=== PATIENT | female | born 1965 | race African-American/Black ===

== ENCOUNTER 2020-09-03 13:24 | Inpatient (IN) | payer OTHER ==
[2020-09-03 15:01] VITALS: BMI 24.3
[2020-09-03] MEDS ORDERED: ACETAMINOPHEN 325 MG TABLET (FP) PO PRN ×2 (17:01)
[2020-09-03] MEDS ORDERED: MAG HYDROX/AL HYDROX/SIMETH 30 ML UNIT-DOSE CUP PO PRN (17:01)
[2020-09-03] MEDS ORDERED: MAGNESIUM HYDROX 2400MG/30ML ORAL SUSPENSION 30 ML CUP PO PRN (17:01)
[2020-09-03] MEDS ORDERED: ONDANSETRON *ODT* 4 MG TABLET SL PRN (17:01)
[2020-09-03] MEDS ORDERED: chlordiazePOXIDE HCL 25 MG CAPSULE PO PRN (17:01)
[2020-09-03] MEDS ORDERED: MENTHOL/PHENOL 1 EACH UD MM PRN (17:01)
[2020-09-03] MEDS ORDERED: NICOTINE POLACRILEX 2 MG GUM BUC PRN (17:01)
[2020-09-03] MEDS ORDERED: BISMUTH SUBSALICYLATE 524 MG/30 ML UD PO PRN (17:01)
[2020-09-03] MEDS ORDERED: MAGNESIUM CITRATE 300 ML BOTTLE PO PRN (17:01)
[2020-09-03] MEDS: chlordiazePOXIDE HCL 25 MG CAPSULE PO SCH ×2 (18:05→22:34)
[2020-09-03] MEDS: THIAMINE HCL 100 MG TABLET (FP) PO SCH (22:33)
[2020-09-03] MEDS: MELATONIN 5 MG TABLETS PO SCH (22:33)
[2020-09-03] MEDS: SULFAMETHOXAZOLE/TRIMETHOPRIM 800MG/160MG D.S. TABLET PO SCH (22:35)
[2020-09-03] MEDS: cloNIDine HCL 0.1 MG TABLET PO SCH (22:35)
[2020-09-04] MEDS: cloNIDine HCL 0.1 MG TABLET PO SCH ×3 (05:33→22:28)
[2020-09-04] MEDS: chlordiazePOXIDE HCL 25 MG CAPSULE PO SCH ×4 (05:33→22:28)
[2020-09-04] MEDS ORDERED: METHADONE HCL 10 MG TABLET PO SCH (08:45)
[2020-09-04] MEDS ORDERED: METHADONE HCL 40 MG DISPERSABLE TABLET ONE (10:03)
[2020-09-04] MEDS ORDERED: METHADONE HCL 10 MG TABLET ONE (10:03)
[2020-09-04] MEDS: SULFAMETHOXAZOLE/TRIMETHOPRIM 800MG/160MG D.S. TABLET PO SCH ×2 (10:05→22:28)
[2020-09-04] MEDS: PRENATAL VITAMINS W/ FOLIC ACID TABLET (FP) PO SCH (10:06)
[2020-09-04] MEDS: LISINOPRIL 10 MG TABLET PO SCH (10:06)
[2020-09-04] MEDS: METHADONE 200 MG, METHADONE 10 MG PO SCH (10:09)
[2020-09-04] MEDS: NICOTINE 21 MG/24 HOURS TOPICAL PATCH TD SCH (10:14)
[2020-09-04 12:26] LABS: HEMATOCRIT 36.4 % (32.4-45.2); MCH 29.5 pg (25.7-33.7); MCHC 33.1 g/dl (32.0-36.0); MEAN CELL VOLUME 89.2 fl (80-96); MEAN PLT VOLUME 10.2 fl (7.5-11.1); PLATELET COUNT 261 K/MM3 (134-434); RBC 4.08 M/mm3 (3.60-5.2); RDW 15.2 % (11.6-15.6); WHITE BLOOD COUNT 6.1 K/mm3 (4.0-10.0)
[2020-09-04 12:31] LABS: POTASSIUM 4.2 mmol/L (3.5-5.1)
[2020-09-04 12:36] LABS: ALBUMIN 4.1 g/dl (3.4-5.0); BLOOD UREA NITROGEN 20.6 mg/dL (7-18); CALCIUM 9.2 mg/dL (8.5-10.1)
[2020-09-04 12:40] LABS: BILIRUBIN,TOTAL 0.7 mg/dL (0.2-1)
[2020-09-04 12:41] LABS: TOT PROT 8.3 g/dl (6.4-8.2)
[2020-09-04] MEDS ORDERED: MASKS NR ONE (22:27)
[2020-09-04] MEDS: MELATONIN 5 MG TABLETS PO SCH (22:28)
[2020-09-04] MEDS: THIAMINE HCL 100 MG TABLET (FP) PO SCH (22:28)
[2020-09-05] MEDS ORDERED: METHADONE HCL 10 MG TABLET ONE (04:01)
[2020-09-05] MEDS ORDERED: METHADONE HCL 40 MG DISPERSABLE TABLET ONE (04:02)
[2020-09-05] MEDS: chlordiazePOXIDE HCL 25 MG CAPSULE PO SCH ×4 (06:00→22:35)
[2020-09-05] MEDS: cloNIDine HCL 0.1 MG TABLET PO SCH ×3 (06:00→22:35)
[2020-09-05] MEDS: METHADONE 200 MG, METHADONE 10 MG PO SCH (06:01)
[2020-09-05] MEDS: LISINOPRIL 10 MG TABLET PO SCH (10:35)
[2020-09-05] MEDS: SULFAMETHOXAZOLE/TRIMETHOPRIM 800MG/160MG D.S. TABLET PO SCH ×2 (10:35→22:35)
[2020-09-05] MEDS: PRENATAL VITAMINS W/ FOLIC ACID TABLET (FP) PO SCH (10:36)
[2020-09-05] MEDS: NICOTINE 21 MG/24 HOURS TOPICAL PATCH TD SCH (10:36)
[2020-09-05] MEDS: IBUPROFEN 400 MG TABLET (FP) PO PRN (11:40)
[2020-09-05] MEDS: METHOCARBAMOL 500 MG TABLET PO PRN (11:40)
[2020-09-05 16:34] LABS: POTASSIUM 4.7 mmol/L (3.5-5.1)
[2020-09-05 16:36] LABS: CALCIUM 9.4 mg/dL (8.5-10.1)
[2020-09-05 16:37] LABS: ALBUMIN 3.6 g/dl (3.4-5.0); BLOOD UREA NITROGEN 26.6 mg/dL (7-18)
[2020-09-05 16:41] LABS: BILIRUBIN,TOTAL 0.2 mg/dL (0.2-1); TOT PROT 7.4 g/dl (6.4-8.2)
[2020-09-05] MEDS: AMMONIUM LACTATE 12% LOTION 225 GM BOTTLE TP PRN (19:43)
[2020-09-05] MEDS: MELATONIN 5 MG TABLETS PO SCH (22:35)
[2020-09-05] MEDS: THIAMINE HCL 100 MG TABLET (FP) PO SCH (22:35)
[2020-09-06] MEDS ORDERED: chlordiazePOXIDE HCL 10 MG CAPSULE PO PRN
[2020-09-06] MEDS ORDERED: METHADONE HCL 10 MG TABLET ONE (04:45)
[2020-09-06] MEDS ORDERED: METHADONE HCL 40 MG DISPERSABLE TABLET ONE (04:46)
[2020-09-06] MEDS: METHADONE 200 MG, METHADONE 10 MG PO SCH (06:32)
[2020-09-06] MEDS: chlordiazePOXIDE HCL 10 MG CAPSULE PO SCH ×4 (06:33→22:30)
[2020-09-06] MEDS: cloNIDine HCL 0.1 MG TABLET PO SCH ×3 (06:33→22:31)
[2020-09-06] MEDS: IBUPROFEN 400 MG TABLET (FP) PO PRN (07:17)
[2020-09-06] MEDS: METHOCARBAMOL 500 MG TABLET PO PRN ×2 (07:18→17:54)
[2020-09-06] MEDS: LISINOPRIL 10 MG TABLET PO SCH (10:44)
[2020-09-06] MEDS: NICOTINE 21 MG/24 HOURS TOPICAL PATCH TD SCH (10:44)
[2020-09-06] MEDS: LACTULOSE 20 GM/30 ML UDC (FOR ORAL USE ONLY) PO SCH ×3 (10:44→22:33)
[2020-09-06] MEDS: PRENATAL VITAMINS W/ FOLIC ACID TABLET (FP) PO SCH (10:44)
[2020-09-06] MEDS: SULFAMETHOXAZOLE/TRIMETHOPRIM 800MG/160MG D.S. TABLET PO SCH ×2 (10:44→22:32)
[2020-09-06] MEDS: THIAMINE HCL 100 MG TABLET (FP) PO SCH (22:31)
[2020-09-06] MEDS: MELATONIN 5 MG TABLETS PO SCH (22:31)
[2020-09-07] MEDS ORDERED: METHADONE HCL 10 MG TABLET ONE (05:06)
[2020-09-07] MEDS ORDERED: METHADONE HCL 40 MG DISPERSABLE TABLET ONE (05:06)
[2020-09-07] MEDS: METHADONE 200 MG, METHADONE 10 MG PO SCH (05:22)
[2020-09-07] MEDS: chlordiazePOXIDE HCL 10 MG CAPSULE PO SCH ×2 (05:23→18:12)
[2020-09-07] MEDS: cloNIDine HCL 0.1 MG TABLET PO SCH ×3 (05:24→22:33)
[2020-09-07] MEDS: LACTULOSE 20 GM/30 ML UDC (FOR ORAL USE ONLY) PO SCH ×3 (05:25→22:33)
[2020-09-07] MEDS: IBUPROFEN 400 MG TABLET (FP) PO PRN (05:31)
[2020-09-07] MEDS: LISINOPRIL 10 MG TABLET PO SCH (10:11)
[2020-09-07] MEDS: SULFAMETHOXAZOLE/TRIMETHOPRIM 800MG/160MG D.S. TABLET PO SCH ×2 (10:11→22:34)
[2020-09-07] MEDS: PRENATAL VITAMINS W/ FOLIC ACID TABLET (FP) PO SCH (10:11)
[2020-09-07] MEDS: NICOTINE 21 MG/24 HOURS TOPICAL PATCH TD SCH (10:11)
[2020-09-07] MEDS: AMMONIUM LACTATE 12% LOTION 225 GM BOTTLE TP PRN (10:13)
[2020-09-07] MEDS: SIMETHICONE 80 MG TAB.CHEW (FP) PO SCH ×2 (18:13→22:34)
[2020-09-07] MEDS: THIAMINE HCL 100 MG TABLET (FP) PO SCH (22:33)
[2020-09-07] MEDS: MELATONIN 5 MG TABLETS PO SCH (22:33)
[2020-09-08] MEDS ORDERED: METHADONE HCL 10 MG TABLET ONE (03:48)
[2020-09-08] MEDS ORDERED: METHADONE HCL 40 MG DISPERSABLE TABLET ONE (03:49)
[2020-09-08] MEDS ORDERED: chlordiazePOXIDE HCL 10 MG CAPSULE PO ONE (05:00)
[2020-09-08] MEDS: METHADONE 200 MG, METHADONE 10 MG PO SCH (06:24)
[2020-09-08] MEDS: cloNIDine HCL 0.1 MG TABLET PO SCH (06:35)
[2020-09-08] MEDS: LACTULOSE 20 GM/30 ML UDC (FOR ORAL USE ONLY) PO SCH (06:36)
[2020-09-08 09:48] VITALS: BP 111/65; PULSE 66; TEMP 96.9
[2020-09-08] MEDS ORDERED: LACTULOSE 20 GM/30 ML UDC (FOR ORAL USE ONLY) PO SCH (10:00)
[2020-09-08] MEDS: LISINOPRIL 10 MG TABLET PO SCH (10:34)
[2020-09-08] MEDS: PRENATAL VITAMINS W/ FOLIC ACID TABLET (FP) PO SCH (10:34)
[2020-09-08] MEDS: SULFAMETHOXAZOLE/TRIMETHOPRIM 800MG/160MG D.S. TABLET PO SCH (10:34)
[2020-09-08] MEDS: NICOTINE 21 MG/24 HOURS TOPICAL PATCH TD SCH (10:34)
[2020-09-08] MEDS: SIMETHICONE 80 MG TAB.CHEW (FP) PO SCH (10:34)
== END 2020-09-08 11:59 | disposition other institution (70) | DRG 774 ==
LOC: YASAS 13:24 → Y6N 16:16
PROVIDERS: ADMIT Allergy & Immunology; ATTEND Allergy & Immunology
PROC: HZ2ZZZZ Detoxification Services for Substance Abuse Treatment (ICD-10-PCS; principal; 2020-09-03)
DX: F10.230 Alcohol dependence with withdrawal, uncomplicated (principal); F14.20 Cocaine dependence, uncomplicated; F12.20 Cannabis dependence, uncomplicated; F17.210 Nicotine dependence, cigarettes, uncomplicated; F19.24 Other psychoactive substance dependence with psychoactive substance-induced mood disorder; F41.9 Anxiety disorder, unspecified; F32.9 Major depressive disorder, single episode, unspecified; F43.10 Post-traumatic stress disorder, unspecified; Z21 Asymptomatic human immunodeficiency virus [HIV] infection status; E72.20 Disorder of urea cycle metabolism, unspecified; I10 Essential (primary) hypertension; R56.9 Unspecified convulsions; R79.89 Other specified abnormal findings of blood chemistry; Z87.440 Personal history of urinary (tract) infections; Z88.0 Allergy status to penicillin; Z56.0 Unemployment, unspecified; Z59.0 Homelessness
CPT/HCPCS: 36415; 80053; 81025; 82140; 84520; 85027; 86780; C9803; J0735; U0003

== ENCOUNTER 2020-09-08 12:35 | Inpatient (IN) | payer OTHER ==
[2020-09-08] MEDS ORDERED: MAGNESIUM HYDROX 2400MG/30ML ORAL SUSPENSION 30 ML CUP PO PRN (15:25)
[2020-09-08] MEDS ORDERED: MENTHOL/PHENOL 1 EACH UD MM PRN (15:25)
[2020-09-08] MEDS ORDERED: MAGNESIUM CITRATE 300 ML BOTTLE PO PRN (15:25)
[2020-09-08] MEDS ORDERED: MAG HYDROX/AL HYDROX/SIMETH 30 ML UNIT-DOSE CUP PO PRN (15:25)
[2020-09-08] MEDS ORDERED: LOPERAMIDE HCL 2 MG CAPSULE PO PRN (15:25)
[2020-09-08] MEDS ORDERED: P-EPHED 60MG/TRIPROLIDI 2.5MG TABLET PO PRN (15:25)
[2020-09-08] MEDS ORDERED: guaiFENesin 200 MG/10 ML 10 ML UNIT-DOSE CUPS PO PRN (15:25)
[2020-09-08] MEDS ORDERED: NICOTINE POLACRILEX 2 MG GUM BUC PRN (15:25)
[2020-09-08] MEDS ORDERED: ACETAMINOPHEN 325 MG TABLET (FP) PO PRN (15:25)
[2020-09-08] MEDS: LACTULOSE 20 GM/30 ML UDC (FOR ORAL USE ONLY) PO SCH ×2 (17:17→21:27)
[2020-09-08] MEDS: IBUPROFEN 400 MG TABLET (FP) PO PRN (18:21)
[2020-09-08] MEDS: SULFAMETHOXAZOLE/TRIMETHOPRIM 800MG/160MG D.S. TABLET PO SCH (21:27)
[2020-09-08] MEDS: THIAMINE HCL 100 MG TABLET (FP) PO SCH (21:27)
[2020-09-08] MEDS: MELATONIN 5 MG TABLETS PO SCH (21:27)
[2020-09-09] MEDS ORDERED: METHADONE HCL 10 MG TABLET PO SCH (06:00)
[2020-09-09] MEDS ORDERED: METHADONE HCL 40 MG DISPERSABLE TABLET ONE (07:24)
[2020-09-09] MEDS ORDERED: METHADONE HCL 10 MG TABLET ONE (07:24)
[2020-09-09] MEDS: METHADONE 200 MG, METHADONE 10 MG PO SCH (07:25)
[2020-09-09] MEDS: LISINOPRIL 10 MG TABLET PO SCH (10:23)
[2020-09-09] MEDS: hydrOXYzine PAMOATE 25 MG CAPSULE (FP) PO PRN ×2 (10:34→14:10)
[2020-09-09] MEDS: LACTULOSE 20 GM/30 ML UDC (FOR ORAL USE ONLY) PO SCH ×4 (10:34→21:06)
[2020-09-09] MEDS: PRENATAL VITAMINS W/ FOLIC ACID TABLET (FP) PO SCH (10:34)
[2020-09-09] MEDS: NICOTINE 7 MG/24 HOURS TOPICAL PATCH TD SCH (10:34)
[2020-09-09] MEDS: SULFAMETHOXAZOLE/TRIMETHOPRIM 800MG/160MG D.S. TABLET PO SCH ×2 (10:34→21:06)
[2020-09-09] MEDS: IBUPROFEN 400 MG TABLET (FP) PO PRN (10:35)
[2020-09-09] MEDS: LIDOCAINE 5% TOPICAL PATCH TP SCH (14:09)
[2020-09-09] MEDS ORDERED: PT OWN MED DRAWER 7, Y5N ONE (15:26)
[2020-09-09] MEDS: THIAMINE HCL 100 MG TABLET (FP) PO SCH (21:06)
[2020-09-09] MEDS: MELATONIN 5 MG TABLETS PO SCH (21:06)
[2020-09-09] MEDS: LIDOCAINE PATCH REMOVAL MC SCH (21:07)
[2020-09-09] MEDS: BACITRACIN 0.9 GM PACKET TP SCH (21:07)
[2020-09-09] MEDS: cloNIDine HCL 0.1 MG TABLET PO SCH (21:07)
[2020-09-10] MEDS ORDERED: METHADONE HCL 10 MG TABLET ONE (03:18)
[2020-09-10] MEDS ORDERED: METHADONE HCL 40 MG DISPERSABLE TABLET ONE (03:18)
[2020-09-10] MEDS: METHADONE 200 MG, METHADONE 10 MG PO SCH (06:23)
[2020-09-10] MEDS: cloNIDine HCL 0.1 MG TABLET PO SCH ×3 (06:24→21:31)
[2020-09-10] MEDS: PRENATAL VITAMINS W/ FOLIC ACID TABLET (FP) PO SCH (10:47)
[2020-09-10] MEDS: SULFAMETHOXAZOLE/TRIMETHOPRIM 800MG/160MG D.S. TABLET PO SCH ×2 (10:47→21:31)
[2020-09-10] MEDS: LIDOCAINE 5% TOPICAL PATCH TP SCH (10:47)
[2020-09-10] MEDS: LISINOPRIL 10 MG TABLET PO SCH (10:48)
[2020-09-10] MEDS: hydrOXYzine PAMOATE 25 MG CAPSULE (FP) PO PRN (10:48)
[2020-09-10] MEDS: LACTULOSE 20 GM/30 ML UDC (FOR ORAL USE ONLY) PO SCH ×4 (10:48→21:31)
[2020-09-10] MEDS: NICOTINE 7 MG/24 HOURS TOPICAL PATCH TD SCH (10:48)
[2020-09-10] MEDS: BACITRACIN 0.9 GM PACKET TP SCH ×2 (10:48→21:31)
[2020-09-10] MEDS: MELATONIN 5 MG TABLETS PO SCH (21:31)
[2020-09-10] MEDS: THIAMINE HCL 100 MG TABLET (FP) PO SCH (21:31)
[2020-09-10] MEDS: LIDOCAINE PATCH REMOVAL MC SCH (21:32)
[2020-09-11] MEDS ORDERED: METHADONE HCL 40 MG DISPERSABLE TABLET ONE (03:39)
[2020-09-11] MEDS ORDERED: METHADONE HCL 10 MG TABLET ONE (03:39)
[2020-09-11] MEDS: cloNIDine HCL 0.1 MG TABLET PO SCH ×3 (06:15→21:24)
[2020-09-11] MEDS: METHADONE 200 MG, METHADONE 10 MG PO SCH (06:15)
[2020-09-11] MEDS: hydrOXYzine PAMOATE 25 MG CAPSULE (FP) PO PRN ×2 (10:38→14:08)
[2020-09-11] MEDS: BACITRACIN 0.9 GM PACKET TP SCH ×2 (10:38→21:25)
[2020-09-11] MEDS: SULFAMETHOXAZOLE/TRIMETHOPRIM 800MG/160MG D.S. TABLET PO SCH ×2 (10:38→21:25)
[2020-09-11] MEDS: LACTULOSE 20 GM/30 ML UDC (FOR ORAL USE ONLY) PO SCH ×4 (10:38→21:24)
[2020-09-11] MEDS: LISINOPRIL 10 MG TABLET PO SCH (10:38)
[2020-09-11] MEDS: PRENATAL VITAMINS W/ FOLIC ACID TABLET (FP) PO SCH (10:38)
[2020-09-11] MEDS: LIDOCAINE 5% TOPICAL PATCH TP SCH (10:39)
[2020-09-11] MEDS: NICOTINE 7 MG/24 HOURS TOPICAL PATCH TD SCH (10:39)
[2020-09-11] MEDS: THIAMINE HCL 100 MG TABLET (FP) PO SCH (21:23)
[2020-09-11] MEDS: MELATONIN 5 MG TABLETS PO SCH (21:23)
[2020-09-11] MEDS: LIDOCAINE PATCH REMOVAL MC SCH (21:26)
[2020-09-12] MEDS ORDERED: METHADONE HCL 40 MG DISPERSABLE TABLET ONE (03:16)
[2020-09-12] MEDS ORDERED: METHADONE HCL 10 MG TABLET ONE (03:16)
[2020-09-12] MEDS: cloNIDine HCL 0.1 MG TABLET PO SCH ×3 (06:32→21:21)
[2020-09-12] MEDS: METHADONE 200 MG, METHADONE 10 MG PO SCH (06:34)
[2020-09-12] MEDS: SULFAMETHOXAZOLE/TRIMETHOPRIM 800MG/160MG D.S. TABLET PO SCH ×2 (10:27→21:21)
[2020-09-12] MEDS: PRENATAL VITAMINS W/ FOLIC ACID TABLET (FP) PO SCH (10:27)
[2020-09-12] MEDS: hydrOXYzine PAMOATE 25 MG CAPSULE (FP) PO PRN ×2 (10:27→14:08)
[2020-09-12] MEDS: LIDOCAINE 5% TOPICAL PATCH TP SCH (10:27)
[2020-09-12] MEDS: LISINOPRIL 10 MG TABLET PO SCH (10:27)
[2020-09-12] MEDS: BACITRACIN 0.9 GM PACKET TP SCH ×2 (10:28→21:21)
[2020-09-12] MEDS: LACTULOSE 20 GM/30 ML UDC (FOR ORAL USE ONLY) PO SCH ×4 (10:28→21:21)
[2020-09-12] MEDS: NICOTINE 7 MG/24 HOURS TOPICAL PATCH TD SCH (10:31)
[2020-09-12] MEDS: THIAMINE HCL 100 MG TABLET (FP) PO SCH (21:21)
[2020-09-12] MEDS: MELATONIN 5 MG TABLETS PO SCH (21:21)
[2020-09-12] MEDS: LIDOCAINE PATCH REMOVAL MC SCH (21:22)
[2020-09-13] MEDS ORDERED: METHADONE HCL 10 MG TABLET ONE (03:13)
[2020-09-13] MEDS ORDERED: METHADONE HCL 40 MG DISPERSABLE TABLET ONE (03:13)
[2020-09-13] MEDS: METHADONE 200 MG, METHADONE 10 MG PO SCH (06:19)
[2020-09-13] MEDS: cloNIDine HCL 0.1 MG TABLET PO SCH ×3 (06:19→21:11)
[2020-09-13] MEDS: PRENATAL VITAMINS W/ FOLIC ACID TABLET (FP) PO SCH (10:42)
[2020-09-13] MEDS: BACITRACIN 0.9 GM PACKET TP SCH ×2 (10:42→21:11)
[2020-09-13] MEDS: LACTULOSE 20 GM/30 ML UDC (FOR ORAL USE ONLY) PO SCH ×4 (10:43→21:11)
[2020-09-13] MEDS: LIDOCAINE 5% TOPICAL PATCH TP SCH (10:43)
[2020-09-13] MEDS: LISINOPRIL 10 MG TABLET PO SCH (10:45)
[2020-09-13] MEDS: NICOTINE 7 MG/24 HOURS TOPICAL PATCH TD SCH (10:45)
[2020-09-13] MEDS: THIAMINE HCL 100 MG TABLET (FP) PO SCH (21:11)
[2020-09-13] MEDS: LIDOCAINE PATCH REMOVAL MC SCH (21:12)
[2020-09-13] MEDS: MELATONIN 5 MG TABLETS PO SCH (21:12)
[2020-09-14] MEDS ORDERED: METHADONE HCL 10 MG TABLET ONE (03:20)
[2020-09-14] MEDS ORDERED: METHADONE HCL 40 MG DISPERSABLE TABLET ONE (03:20)
[2020-09-14] MEDS: cloNIDine HCL 0.1 MG TABLET PO SCH ×3 (06:16→21:20)
[2020-09-14] MEDS: METHADONE 200 MG, METHADONE 10 MG PO SCH (06:16)
[2020-09-14] MEDS: LIDOCAINE 5% TOPICAL PATCH TP SCH (10:28)
[2020-09-14] MEDS: BACITRACIN 0.9 GM PACKET TP SCH ×2 (10:28→21:20)
[2020-09-14] MEDS: LACTULOSE 20 GM/30 ML UDC (FOR ORAL USE ONLY) PO SCH ×4 (10:28→21:20)
[2020-09-14] MEDS: PRENATAL VITAMINS W/ FOLIC ACID TABLET (FP) PO SCH (10:29)
[2020-09-14] MEDS: NICOTINE 7 MG/24 HOURS TOPICAL PATCH TD SCH (10:29)
[2020-09-14] MEDS: LISINOPRIL 10 MG TABLET PO SCH (10:29)
[2020-09-14 20:41] VITALS: TEMP 97.5
[2020-09-14] MEDS: THIAMINE HCL 100 MG TABLET (FP) PO SCH (21:20)
[2020-09-14] MEDS: MELATONIN 5 MG TABLETS PO SCH (21:20)
[2020-09-14] MEDS: LIDOCAINE PATCH REMOVAL MC SCH (21:21)
[2020-09-15] MEDS ORDERED: METHADONE HCL 40 MG DISPERSABLE TABLET ONE (03:14)
[2020-09-15] MEDS ORDERED: METHADONE HCL 10 MG TABLET ONE (03:14)
[2020-09-15] MEDS: METHADONE 200 MG, METHADONE 10 MG PO SCH (06:01)
[2020-09-15] MEDS: cloNIDine HCL 0.1 MG TABLET PO SCH (06:01)
[2020-09-15 07:05] VITALS: BP 139/89; PULSE 65
[2020-09-15] MEDS: LISINOPRIL 10 MG TABLET PO SCH (09:54)
[2020-09-15] MEDS: BACITRACIN 0.9 GM PACKET TP SCH (09:55)
[2020-09-15] MEDS: LACTULOSE 20 GM/30 ML UDC (FOR ORAL USE ONLY) PO SCH (09:55)
[2020-09-15] MEDS: LIDOCAINE 5% TOPICAL PATCH TP SCH (09:55)
[2020-09-15] MEDS: PRENATAL VITAMINS W/ FOLIC ACID TABLET (FP) PO SCH (09:55)
[2020-09-15] MEDS: NICOTINE 7 MG/24 HOURS TOPICAL PATCH TD SCH (09:56)
== END 2020-09-15 10:20 | disposition home or self-care (01) | DRG 772 ==
LOC: YASAS 12:35 → Y3W 12:37
PROVIDERS: ADMIT Allergy & Immunology; ATTEND Allergy & Immunology
PROC: HZ42ZZZ Group Counseling for Substance Abuse Treatment, Cognitive-Behavioral (ICD-10-PCS; principal; 2020-09-08)
DX: F10.20 Alcohol dependence, uncomplicated (principal); F14.20 Cocaine dependence, uncomplicated; F11.20 Opioid dependence, uncomplicated; F17.210 Nicotine dependence, cigarettes, uncomplicated; F41.9 Anxiety disorder, unspecified; F32.9 Major depressive disorder, single episode, unspecified; F43.10 Post-traumatic stress disorder, unspecified; Z21 Asymptomatic human immunodeficiency virus [HIV] infection status; E72.20 Disorder of urea cycle metabolism, unspecified; I10 Essential (primary) hypertension; N39.0 Urinary tract infection, site not specified; Z86.69 Personal history of other diseases of the nervous system and sense organs; Z88.0 Allergy status to penicillin
CPT/HCPCS: 82140; C9803; J0735; U0003

== ENCOUNTER 2023-07-27 19:58 | Inpatient (IN) | payer OTHER ==
[2023-07-27 21:00] VITALS: BMI 19.5
[2023-07-27] MEDS ORDERED: cloNIDine HCL 0.1 MG TABLET PO ONE (23:07)
[2023-07-27] MEDS ORDERED: BISMUTH SUBSALICYLATE 524 MG/30 ML PO PRN (23:10)
[2023-07-27] MEDS ORDERED: MAG HYDROX/AL HYDROX/SIMETH 30 ML UNIT-DOSE CUP PO PRN (23:10)
[2023-07-27] MEDS ORDERED: BENZONATATE 200 MG CAPSULE PO PRN (23:10)
[2023-07-27] MEDS ORDERED: NALOXONE HCL (KLOXXADO) 8 MG SPRAY NS PRN (23:10)
[2023-07-27] MEDS ORDERED: guaiFENesin 600 MG TABLET.ER (FP) PO PRN (23:10)
[2023-07-27] MEDS ORDERED: IBUPROFEN 600 MG TABLET (FP) PO PRN (23:10)
[2023-07-27] MEDS ORDERED: BENZOCAINE/MENTHOL (CHLORASEPTIC ) LOZENGE MM PRN (23:10)
[2023-07-27] MEDS ORDERED: IBUPROFEN 400 MG TABLET (FP) PO PRN (23:10)
[2023-07-27] MEDS ORDERED: NALOXONE HCL 0.4 MG/ML VIAL IM PRN (23:10)
[2023-07-27] MEDS ORDERED: POLYETHYLENE GLYCOL (HEALTHYLAX) 3350 17 GM PACKET PO PRN (23:10)
[2023-07-27] MEDS ORDERED: MAGNESIUM HYDROX 2400MG/30ML ORAL SUSPENSION 30 ML CUP PO PRN (23:10)
[2023-07-27] MEDS ORDERED: ONDANSETRON *ODT* 4 MG TABLET SL PRN (23:10)
[2023-07-27] MEDS ORDERED: cloNIDine HCL 0.1 MG TABLET ONE (23:27)
[2023-07-28] MEDS ORDERED: AMMONIUM LACTATE 12% LOTION 225 GM BOTTLE TP PRN (09:42)
[2023-07-28] MEDS: methaDONE HCL 40 MG DISPERSABLE TABLET PO SCH (10:28)
[2023-07-28] MEDS: NICOTINE 14 MG/24 HOURS TOPICAL PATCH TD SCH (10:29)
[2023-07-28] MEDS: PRENATAL VITAMINS W/ FOLIC ACID TABLET (FP) PO SCH (10:29)
[2023-07-28] MEDS: LISINOPRIL 10 MG TABLET PO SCH (10:30)
[2023-07-28 10:40] LABS: CHLORIDE 106 mmol/L (98-107); POTASSIUM 4.3 mmol/L (3.5-5.1); SODIUM 139 mmol/L (136-145)
[2023-07-28 10:50] LABS: BLOOD UREA NITROGEN 25.5 mg/dL (7-18); GLUCOSE,RANDOM 105 mg/dL (74-106)
[2023-07-28 10:51] LABS: ALBUMIN 3.2 g/dl (3.4-5.0); ANION GAP 4 mmol/L (4-13); CO2 30 mmol/L (21-32)
[2023-07-28 10:52] LABS: HEMATOCRIT 35.9 % (32.4-45.2); HEMOGLOBIN 11.4 GM/dL (10.7-15.3); MCH 27.6 pg (25.7-33.7); MCHC 31.9 g/dl (32.0-36.0); MEAN CELL VOLUME 86.4 fl (80-96); MEAN PLT VOLUME 9.1 fl (7.5-11.1); PLATELET COUNT 225 10^3/uL (134-434); RBC 4.15 M/mm3 (3.60-5.2); RDW 15.2 % (11.6-15.6); WHITE BLOOD COUNT 4.4 K/mm3 (4.0-10.0)
[2023-07-28 10:53] LABS: CREATININE 0.8 mg/dL (0.55-1.3); SGOT/AST 15 U/L (15-37); SGPT/ALT 19 U/L (13-61); TOT PROT 7.2 g/dl (6.4-8.2)
[2023-07-28 11:01] LABS: ALK PHOS 92 U/L (45-117)
[2023-07-28] MEDS ORDERED: diazePAM 5 MG TABLET PO PRN (11:07)
[2023-07-28] MEDS: diazePAM 5 MG TABLET PO SCH ×3 (11:52→22:15)
[2023-07-28] MEDS: ACETAMINOPHEN 325 MG TABLET (FP) PO PRN (17:32)
[2023-07-28] MEDS: LOPERAMIDE HCL 2 MG CAPSULE PO PRN (22:15)
[2023-07-28] MEDS: THIAMINE HCL 100 MG TABLET (FP) PO SCH (22:15)
[2023-07-28] MEDS: MELATONIN 5 MG TABLETS PO SCH (22:15)
[2023-07-29] MEDS: methaDONE HCL 40 MG DISPERSABLE TABLET PO SCH (05:31)
[2023-07-29] MEDS: diazePAM 5 MG TABLET PO SCH ×4 (05:32→22:09)
[2023-07-29] MEDS: PRENATAL VITAMINS W/ FOLIC ACID TABLET (FP) PO SCH (10:12)
[2023-07-29] MEDS: NICOTINE 14 MG/24 HOURS TOPICAL PATCH TD SCH (10:12)
[2023-07-29] MEDS: LISINOPRIL 10 MG TABLET PO SCH (10:12)
[2023-07-29] MEDS: cloNIDine HCL 0.1 MG TABLET PO SCH ×2 (14:11→22:59)
[2023-07-29] MEDS: ACETAMINOPHEN 325 MG TABLET (FP) PO PRN (17:49)
[2023-07-29] MEDS: THIAMINE HCL 100 MG TABLET (FP) PO SCH (22:08)
[2023-07-29] MEDS: MELATONIN 5 MG TABLETS PO SCH (22:08)
[2023-07-30] MEDS: methaDONE HCL 40 MG DISPERSABLE TABLET PO SCH (05:28)
[2023-07-30] MEDS: diazePAM 5 MG TABLET PO SCH ×3 (05:29→22:19)
[2023-07-30] MEDS: LISINOPRIL 10 MG TABLET PO SCH (10:19)
[2023-07-30] MEDS: cloNIDine HCL 0.1 MG TABLET PO SCH ×2 (10:19→22:18)
[2023-07-30] MEDS: NICOTINE 14 MG/24 HOURS TOPICAL PATCH TD SCH (10:20)
[2023-07-30] MEDS: PRENATAL VITAMINS W/ FOLIC ACID TABLET (FP) PO SCH (10:20)
[2023-07-30] MEDS: MELATONIN 5 MG TABLETS PO SCH (22:18)
[2023-07-30] MEDS: THIAMINE HCL 100 MG TABLET (FP) PO SCH (22:18)
[2023-07-30] MEDS: LOPERAMIDE HCL 2 MG CAPSULE PO PRN (22:23)
[2023-07-31] MEDS: methaDONE HCL 40 MG DISPERSABLE TABLET PO SCH (05:41)
[2023-07-31] MEDS: diazePAM 5 MG TABLET PO SCH ×2 (05:42→17:19)
[2023-07-31] MEDS: PRENATAL VITAMINS W/ FOLIC ACID TABLET (FP) PO SCH (10:36)
[2023-07-31] MEDS: cloNIDine HCL 0.1 MG TABLET PO SCH ×2 (10:36→22:15)
[2023-07-31] MEDS: LISINOPRIL 10 MG TABLET PO SCH (10:36)
[2023-07-31] MEDS: NICOTINE 14 MG/24 HOURS TOPICAL PATCH TD SCH (10:37)
[2023-07-31] MEDS: THIAMINE HCL 100 MG TABLET (FP) PO SCH (22:15)
[2023-07-31] MEDS: MELATONIN 5 MG TABLETS PO SCH (22:15)
[2023-07-31] MEDS: LOPERAMIDE HCL 2 MG CAPSULE PO PRN (22:16)
[2023-08-01] MEDS: methaDONE HCL 40 MG DISPERSABLE TABLET PO SCH (05:47)
[2023-08-01] MEDS ORDERED: diazePAM 5 MG TABLET PO ONE (06:00)
[2023-08-01] MEDS: cloNIDine HCL 0.1 MG TABLET PO SCH (09:18)
[2023-08-01] MEDS: PRENATAL VITAMINS W/ FOLIC ACID TABLET (FP) PO SCH (09:18)
[2023-08-01] MEDS: LISINOPRIL 10 MG TABLET PO SCH (09:18)
[2023-08-01] MEDS: NICOTINE 14 MG/24 HOURS TOPICAL PATCH TD SCH (09:18)
[2023-08-01 13:00] VITALS: RESP 16
[2023-08-01 17:17] VITALS: BP 164/80; PULSE 62; TEMP 98.2
== END 2023-08-01 18:40 | disposition other institution (70) | DRG 773 ==
LOC: YASAS 19:58 → Y3N 23:22
PROVIDERS: ADMIT Allergy & Immunology; ATTEND Surgery
PROC: HZ2ZZZZ Detoxification Services for Substance Abuse Treatment (ICD-10-PCS; principal; 2023-07-27)
DX: F10.230 Alcohol dependence with withdrawal, uncomplicated (principal); F11.20 Opioid dependence, uncomplicated; F12.20 Cannabis dependence, uncomplicated; F17.210 Nicotine dependence, cigarettes, uncomplicated; Z21 Asymptomatic human immunodeficiency virus [HIV] infection status; I10 Essential (primary) hypertension; R79.89 Other specified abnormal findings of blood chemistry; Z91.410 Personal history of adult physical and sexual abuse; Z56.0 Unemployment, unspecified; Z59.00 Homelessness unspecified; Z88.0 Allergy status to penicillin; Z28.310 Unvaccinated for COVID-19; Z28.9 Immunization not carried out for unspecified reason
CPT/HCPCS: 36415; 80053; 80307; 85027; 86780; 87635; 87811

== ENCOUNTER 2023-08-01 18:49 | Inpatient (IN) | payer OTHER ==
[2023-08-01] MEDS ORDERED: MAG HYDROX/AL HYDROX/SIMETH 30 ML UNIT-DOSE CUP PO PRN (19:12)
[2023-08-01] MEDS ORDERED: BENZONATATE 200 MG CAPSULE PO PRN (19:12)
[2023-08-01] MEDS ORDERED: POLYETHYLENE GLYCOL (HEALTHYLAX) 3350 17 GM PACKET PO PRN (19:12)
[2023-08-01] MEDS ORDERED: ACETAMINOPHEN 325 MG TABLET (FP) PO PRN (19:12)
[2023-08-01] MEDS ORDERED: COLLOIDAL OATMEAL 1 BAR EACH TP PRN (19:12)
[2023-08-01] MEDS ORDERED: BENZOCAINE/MENTHOL (CHLORASEPTIC ) LOZENGE MM PRN (19:12)
[2023-08-01] MEDS ORDERED: MAGNESIUM HYDROX 2400MG/30ML ORAL SUSPENSION 30 ML CUP PO PRN (19:12)
[2023-08-01] MEDS ORDERED: guaiFENesin 600 MG TABLET.ER (FP) PO PRN (19:12)
[2023-08-01] MEDS ORDERED: IBUPROFEN 400 MG TABLET (FP) PO PRN (19:12)
[2023-08-01] MEDS ORDERED: LOPERAMIDE HCL 2 MG CAPSULE PO PRN (19:12)
[2023-08-01] MEDS ORDERED: P-EPHED 60MG/TRIPROLIDI 2.5MG TABLET PO PRN (19:12)
[2023-08-01] MEDS ORDERED: AMMONIUM LACTATE 12% LOTION 225 GM BOTTLE TP PRN (19:38)
[2023-08-01] MEDS: IBUPROFEN 600 MG TABLET (FP) PO PRN (19:47)
[2023-08-01] MEDS: MELATONIN 5 MG TABLETS PO SCH (21:22)
[2023-08-01] MEDS: cloNIDine HCL 0.1 MG TABLET PO SCH (21:22)
[2023-08-01] MEDS: THIAMINE HCL 100 MG TABLET (FP) PO SCH (21:23)
[2023-08-02] MEDS: methaDONE HCL 40 MG DISPERSABLE TABLET PO SCH (06:50)
[2023-08-02] MEDS: cloNIDine HCL 0.1 MG TABLET PO SCH ×2 (10:30→22:06)
[2023-08-02] MEDS: PRENATAL VITAMINS W/ FOLIC ACID TABLET (FP) PO SCH (10:30)
[2023-08-02] MEDS: LISINOPRIL 10 MG TABLET PO SCH (10:30)
[2023-08-02] MEDS: GABAPENTIN 100 MG CAPSULE PO SCH (22:07)
[2023-08-02] MEDS: THIAMINE HCL 100 MG TABLET (FP) PO SCH (22:07)
[2023-08-02] MEDS: MELATONIN 5 MG TABLETS PO SCH (22:07)
[2023-08-03] MEDS: methaDONE HCL 40 MG DISPERSABLE TABLET PO SCH (06:35)
[2023-08-03] MEDS: GABAPENTIN 100 MG CAPSULE PO SCH ×3 (06:36→21:29)
[2023-08-03] MEDS: IBUPROFEN 600 MG TABLET (FP) PO PRN (07:00)
[2023-08-03] MEDS: cloNIDine HCL 0.1 MG TABLET PO SCH ×2 (09:57→21:29)
[2023-08-03] MEDS: LISINOPRIL 10 MG TABLET PO SCH (09:57)
[2023-08-03] MEDS: PRENATAL VITAMINS W/ FOLIC ACID TABLET (FP) PO SCH (09:57)
[2023-08-03] MEDS: METHOCARBAMOL 500 MG TABLET PO PRN (09:59)
[2023-08-03] MEDS ORDERED: GABAPENTIN 100 MG CAPSULE PO SCH (11:22)
[2023-08-03 17:06] LABS: EPI CELLS >36 /uL (0-25.1); HYALINE CASTS 2 /uL (0-3.1); PH,URINE 5.5 (5.0-8.0); URINE APPEARANCE CLOUDY; URINE BACTERIA 767 /uL (0-1359); URINE BILIRUBIN NEGATIVE (NEGATIVE); URINE COLOR YELLOW; URINE GLUCOSE (UA) NEGATIVE (NEGATIVE); URINE KETONE TRACE (NEGATIVE); URINE LEUK ESTERASE 2+ (NEGATIVE); URINE NITRITE NEGATIVE (NEGATIVE); URINE PROTEIN NEGATIVE (NEGATIVE); URINE RBC 12 /uL (0-23.9); URINE UROBILINOGEN 0.2 mg/dL (0.2-1.0); URINE WBC 134 /uL (0-25.8)
[2023-08-03] MEDS: MELATONIN 5 MG TABLETS PO SCH (21:29)
[2023-08-03] MEDS: THIAMINE HCL 100 MG TABLET (FP) PO SCH (21:29)
[2023-08-04] MEDS: methaDONE HCL 40 MG DISPERSABLE TABLET PO SCH (06:35)
[2023-08-04] MEDS: GABAPENTIN 100 MG CAPSULE PO SCH ×3 (06:35→22:01)
[2023-08-04] MEDS: LISINOPRIL 10 MG TABLET PO SCH (10:18)
[2023-08-04] MEDS: METHOCARBAMOL 500 MG TABLET PO PRN ×2 (10:18→22:02)
[2023-08-04] MEDS: cloNIDine HCL 0.1 MG TABLET PO SCH ×2 (10:18→22:01)
[2023-08-04] MEDS: PRENATAL VITAMINS W/ FOLIC ACID TABLET (FP) PO SCH (10:18)
[2023-08-04] MEDS: THIAMINE HCL 100 MG TABLET (FP) PO SCH (22:01)
[2023-08-04] MEDS: MELATONIN 5 MG TABLETS PO SCH (22:01)
[2023-08-05] MEDS: GABAPENTIN 100 MG CAPSULE PO SCH ×3 (06:29→21:07)
[2023-08-05] MEDS: methaDONE HCL 40 MG DISPERSABLE TABLET PO SCH (06:29)
[2023-08-05] MEDS: PRENATAL VITAMINS W/ FOLIC ACID TABLET (FP) PO SCH (09:50)
[2023-08-05] MEDS: LISINOPRIL 10 MG TABLET PO SCH (09:50)
[2023-08-05] MEDS: METHOCARBAMOL 500 MG TABLET PO PRN (21:07)
[2023-08-05] MEDS: cloNIDine HCL 0.1 MG TABLET PO PRN (21:07)
[2023-08-05] MEDS: MELATONIN 5 MG TABLETS PO SCH (21:08)
[2023-08-05] MEDS: THIAMINE HCL 100 MG TABLET (FP) PO SCH (21:08)
[2023-08-06] MEDS: methaDONE HCL 40 MG DISPERSABLE TABLET PO SCH (06:44)
[2023-08-06] MEDS: GABAPENTIN 100 MG CAPSULE PO SCH ×3 (06:44→21:11)
[2023-08-06] MEDS: LISINOPRIL 10 MG TABLET PO SCH (09:54)
[2023-08-06] MEDS: PRENATAL VITAMINS W/ FOLIC ACID TABLET (FP) PO SCH (09:55)
[2023-08-06] MEDS: cloNIDine HCL 0.1 MG TABLET PO PRN (16:43)
[2023-08-06] MEDS: MELATONIN 5 MG TABLETS PO SCH (21:11)
[2023-08-06] MEDS: THIAMINE HCL 100 MG TABLET (FP) PO SCH (21:11)
[2023-08-06] MEDS: IBUPROFEN 600 MG TABLET (FP) PO PRN (21:12)
[2023-08-07] MEDS: GABAPENTIN 100 MG CAPSULE PO SCH ×3 (06:33→21:21)
[2023-08-07] MEDS: methaDONE HCL 40 MG DISPERSABLE TABLET PO SCH (06:33)
[2023-08-07 07:57] VITALS: RESP 18
[2023-08-07] MEDS: PRENATAL VITAMINS W/ FOLIC ACID TABLET (FP) PO SCH (09:47)
[2023-08-07] MEDS: LISINOPRIL 10 MG TABLET PO SCH (10:07)
[2023-08-07] MEDS: IBUPROFEN 600 MG TABLET (FP) PO PRN (18:19)
[2023-08-07] MEDS: METHOCARBAMOL 500 MG TABLET PO PRN (18:19)
[2023-08-07] MEDS: MELATONIN 5 MG TABLETS PO SCH (21:21)
[2023-08-07] MEDS: THIAMINE HCL 100 MG TABLET (FP) PO SCH (21:21)
[2023-08-08] MEDS: cloNIDine HCL 0.1 MG TABLET PO PRN ×2 (02:30→21:05)
[2023-08-08] MEDS: methaDONE HCL 40 MG DISPERSABLE TABLET PO SCH (06:33)
[2023-08-08] MEDS: GABAPENTIN 100 MG CAPSULE PO SCH ×3 (06:35→21:05)
[2023-08-08] MEDS: PRENATAL VITAMINS W/ FOLIC ACID TABLET (FP) PO SCH (10:07)
[2023-08-08] MEDS: LISINOPRIL 10 MG TABLET PO SCH (10:07)
[2023-08-08] MEDS: IBUPROFEN 600 MG TABLET (FP) PO PRN ×2 (10:27→10:29)
[2023-08-08] MEDS: MELATONIN 5 MG TABLETS PO SCH (21:05)
[2023-08-08] MEDS: THIAMINE HCL 100 MG TABLET (FP) PO SCH (21:05)
[2023-08-09] MEDS: methaDONE HCL 40 MG DISPERSABLE TABLET PO SCH (06:21)
[2023-08-09] MEDS: GABAPENTIN 100 MG CAPSULE PO SCH ×3 (06:22→21:10)
[2023-08-09] MEDS: LISINOPRIL 10 MG TABLET PO SCH (07:51)
[2023-08-09] MEDS: PRENATAL VITAMINS W/ FOLIC ACID TABLET (FP) PO SCH (10:12)
[2023-08-09] MEDS ORDERED: cloNIDine HCL 0.1 MG TABLET PO ONE (12:29)
[2023-08-09] MEDS: THIAMINE HCL 100 MG TABLET (FP) PO SCH (21:10)
[2023-08-09] MEDS: MELATONIN 5 MG TABLETS PO SCH (21:10)
[2023-08-09] MEDS: cloNIDine HCL 0.1 MG TABLET PO PRN (21:13)
[2023-08-09] MEDS ORDERED: traZODone HCL 50 MG TABLET (FP) PO SCH (22:00)
[2023-08-10] MEDS: methaDONE HCL 40 MG DISPERSABLE TABLET PO SCH (07:06)
[2023-08-10] MEDS: GABAPENTIN 100 MG CAPSULE PO SCH (07:06)
[2023-08-10 07:28] VITALS: TEMP 97.5
[2023-08-10] MEDS: PRENATAL VITAMINS W/ FOLIC ACID TABLET (FP) PO SCH (10:21)
[2023-08-10] MEDS: LISINOPRIL 10 MG TABLET PO SCH (10:22)
[2023-08-10 11:23] VITALS: BP 146/84; PULSE 70
== END 2023-08-10 10:50 | disposition left against medical advice (07) | DRG 770 ==
LOC: YASAS 18:49 → Y5N 18:51
PROVIDERS: ADMIT Allergy & Immunology; ATTEND Psychiatry & Neurology Pain Medicine
PROC: HZ42ZZZ Group Counseling for Substance Abuse Treatment, Cognitive-Behavioral (ICD-10-PCS; principal; 2023-08-01)
DX: F14.20 Cocaine dependence, uncomplicated (principal); F11.20 Opioid dependence, uncomplicated; F17.210 Nicotine dependence, cigarettes, uncomplicated; F41.9 Anxiety disorder, unspecified; F43.10 Post-traumatic stress disorder, unspecified; F32.A Depression, unspecified; Z21 Asymptomatic human immunodeficiency virus [HIV] infection status; I10 Essential (primary) hypertension; S69.91XA Unspecified injury of right wrist, hand and finger(s), initial encounter; W22.8XXA Striking against or struck by other objects, initial encounter; Y92.238 Other place in hospital as the place of occurrence of the external cause; R82.90 Unspecified abnormal findings in urine; Z88.0 Allergy status to penicillin; F91.8 Other conduct disorders; Z91.199 Patient's noncompliance with other medical treatment and regimen due to unspecified reason
CPT/HCPCS: 36415; 81003; 82962; 87491; 87591; 87635; 87661; 93005; 93010

== ENCOUNTER 2024-04-26 12:53 | Inpatient (IN) | payer OTHER ==
[2024-04-26 14:58] VITALS: BMI 19.7
[2024-04-26] MEDS ORDERED: BENZONATATE 200 MG CAPSULE PO PRN (20:31)
[2024-04-26] MEDS ORDERED: BENZOCAINE/MENTHOL (CHLORASEPTIC ) LOZENGE MM PRN (20:31)
[2024-04-26] MEDS ORDERED: NICOTINE POLACRILEX 4 MG GUM BUC PRN (20:31)
[2024-04-26] MEDS ORDERED: DICYCLOMINE HCL 10 MG CAPSULE PO PRN (20:31)
[2024-04-26] MEDS ORDERED: MAGNESIUM HYDROX 2400MG/30ML ORAL SUSPENSION 30 ML CUP PO PRN (20:31)
[2024-04-26] MEDS ORDERED: ONDANSETRON *ODT* 4 MG TABLET SL PRN (20:31)
[2024-04-26] MEDS ORDERED: IBUPROFEN 600 MG TABLET (FP) PO PRN (20:31)
[2024-04-26] MEDS ORDERED: NALOXONE (NARCAN) HCL 4 MG/0.1 ML SPRAY NS PRN (20:31)
[2024-04-26] MEDS ORDERED: MAG HYDROX/AL HYDROX/SIMETH 30 ML UNIT-DOSE CUP PO PRN (20:31)
[2024-04-26] MEDS ORDERED: BISMUTH SUBSALICYLATE 524 MG/30 ML PO PRN (20:31)
[2024-04-26] MEDS ORDERED: NALOXONE HCL 0.4 MG/ML VIAL IM PRN (20:31)
[2024-04-26] MEDS ORDERED: guaiFENesin 600 MG TABLET.ER (FP) PO PRN (20:31)
[2024-04-26] MEDS ORDERED: LOPERAMIDE HCL 2 MG CAPSULE PO PRN (20:31)
[2024-04-26] MEDS ORDERED: IBUPROFEN 400 MG TABLET (FP) PO PRN (20:31)
[2024-04-26] MEDS ORDERED: ACETAMINOPHEN 325 MG TABLET (FP) PO PRN (20:31)
[2024-04-26] MEDS ORDERED: POLYETHYLENE GLYCOL (HEALTHYLAX) 3350 17 GM PACKET PO PRN (20:31)
[2024-04-26] MEDS ORDERED: LISINOPRIL 10 MG TABLET ONE (21:08)
[2024-04-26] MEDS: LISINOPRIL 10 MG TABLET PO ONE (21:09)
[2024-04-26] MEDS: MELATONIN 5 MG TABLETS PO SCH (21:10)
[2024-04-26] MEDS: THIAMINE 100 MG TABLET PO SCH (21:10)
[2024-04-27] MEDS: cloNIDine HCL 0.1 MG TABLET PO ONE (06:15)
[2024-04-27] MEDS: NICOTINE 14 MG/24 HOURS TOPICAL PATCH TD SCH (09:06)
[2024-04-27] MEDS: PRENATAL VITAMINS W/ FOLIC ACID TABLET (FP) PO SCH (09:06)
[2024-04-27] MEDS: methaDONE HCL 10 MG TABLET PO ONE (13:11)
[2024-04-27] MEDS: GABAPENTIN 100 MG CAPSULE PO SCH (13:16)
[2024-04-27] MEDS: LACTULOSE 20 GM/30 ML UDC (FOR ORAL USE ONLY) PO SCH (13:17)
[2024-04-27 13:19] LABS: HEMATOCRIT 37.4 % (32.4-45.2); HEMOGLOBIN 11.9 GM/dL (10.7-15.3); MCH 27.6 pg (25.7-33.7); MCHC 31.7 g/dl (32.0-36.0); MEAN CELL VOLUME 87.1 fl (80-96); MEAN PLT VOLUME 8.8 fl (7.5-11.1); PLATELET COUNT 251 10^3/uL (134-434); RDW 15.4 % (11.6-15.6); WHITE BLOOD COUNT 4.6 K/mm3 (4.0-10.0)
[2024-04-27 13:47] LABS: CHLORIDE 109 mmol/L (98-107); POTASSIUM 3.8 mmol/L (3.5-5.1); SODIUM 142 mmol/L (136-145)
[2024-04-27 13:50] LABS: ALBUMIN 3.2 g/dl (3.4-5.0); ANION GAP 8 mmol/L (4-13); CALCIUM 9.3 mg/dL (8.5-10.1); CO2 24 mmol/L (21-32); GLUCOSE,RANDOM 122 mg/dL (74-106)
[2024-04-27 13:53] LABS: CREATININE 0.8 mg/dL (0.55-1.3)
[2024-04-27 13:54] LABS: BILIRUBIN,TOTAL 0.4 mg/dL (0.2-1); SGOT/AST 17 U/L (15-37); SGPT/ALT 19 U/L (13-61)
[2024-04-27 13:55] LABS: TOT PROT 6.8 g/dl (6.4-8.2)
[2024-04-27 13:56] LABS: ALK PHOS 79 U/L (45-117)
[2024-04-27] MEDS ORDERED: AMMONIUM LACTATE 12% LOTION 225 GM BOTTLE TP PRN (14:00)
[2024-04-27] MEDS: cloNIDine HCL 0.1 MG TABLET PO PRN (22:16)
[2024-04-28] MEDS ORDERED: LISINOPRIL 10 MG TABLET PO SCH (10:00)
[2024-04-28] MEDS: LISINOPRIL 20 MG, LISINOPRIL 10 MG PO SCH (10:30)
[2024-04-28 13:24] VITALS: RESP 16
[2024-04-28] MEDS: hydrOXYzine PAMOATE 25 MG CAPSULE (FP) PO PRN (21:36)
[2024-04-29 10:03] VITALS: TEMP 97.7
[2024-04-29 10:05] VITALS: BP 187/77; PULSE 64
[2024-04-29] MEDS: methaDONE HCL 10 MG TABLET PO ONE (11:06)
== END 2024-04-29 11:09 | disposition other institution (70) | DRG 773 ==
LOC: YASAS 12:53 → Y6N 04-27 12:01
PROVIDERS: ADMIT Allergy & Immunology; ATTEND Surgery
PROC: HZ2ZZZZ Detoxification Services for Substance Abuse Treatment (ICD-10-PCS; principal; 2024-04-27)
DX: F10.230 Alcohol dependence with withdrawal, uncomplicated (principal); F14.20 Cocaine dependence, uncomplicated; F11.20 Opioid dependence, uncomplicated; F17.210 Nicotine dependence, cigarettes, uncomplicated; Z21 Asymptomatic human immunodeficiency virus [HIV] infection status; I10 Essential (primary) hypertension; Z56.0 Unemployment, unspecified; Z59.00 Homelessness unspecified; Z88.0 Allergy status to penicillin
CPT/HCPCS: 36415; 80053; 80305; 80307; 81025; 85027; 86780; 93005; 93010